=== PATIENT | male | born 1980 | race Caucasian/White ===

== ENCOUNTER 2017-08-07 08:26 | Emergency (ER) | payer SELFPAY ==
--- NOTE | 2017-08-07 08:42 | ED ---
Alcohol HPI - General Chief Complaint: Alcohol Stated Complaint: ETOH Time Seen by Provider: 08/07/17 08:31 Source: patient, RN notes reviewed, old records reviewed Mode of arrival: wheelchair Limitations: altered mental status - History of Present Illness Initial Comments: 36-year-old male presents for evaluation. Patient was seen in the emergency department overnight with right ankle pain. He was in the lobby several hours after discharge, police was called to escort him out of the waiting room, at that time he was somewhat lethargic and unresponsive. He did respond to external stimuli. Patient does admit to drinking. He has no complaints at the time my evaluation. He is clinically intoxicated. No suicidal or homicidal ideation. Patient is currently homeless and due to the area. 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 - Related Data Home Medications Medication Instructions Recorded Confirmed Unable To Assess [Unable to Assess] 08/07/17 08/07/17 Allergies Allergy/AdvReac Type Severity Reaction Status Date / Time Penicillins Allergy Unknown Verified 08/07/17 08:36 Review of Systems ROS Statement: Those systems with pertinent positive or pertinent negative responses have been documented in the HPI. ROS Other: All systems not noted in ROS Statement are negative. Past Medical History Past Medical History: Hypertension History of Any Multi-Drug Resistant Organisms: None Reported Past Surgical History: Appendectomy Additional Past Surgical History / Comment(s): cataract surgery, right leg surgery, right arm surgery Past Psychological History: No Psychological Hx Reported Smoking Status: Current every day smoker Past Alcohol Use History: Abuse Past Drug Use History: None Reported General Exam Limitations: altered mental status General appearance: alert, in no apparent distress, appears intoxicated Head exam: Present: atraumatic, normocephalic Eye exam: Present: normal appearance, PERRL ENT exam: Present: normal exam Neck exam: Present: normal inspection Respiratory exam: Present: normal lung sounds bilaterally. Absent: respiratory distress Cardiovascular Exam: Present: regular rate, normal rhythm GI/Abdominal exam: Present: soft. Absent: distended, tenderness Extremities exam: Present: other (Right ankle wrapped in Pacheco wrap) Back exam: Present: normal inspection, full ROM Neurological exam: Present: alert, oriented X3. Absent: motor sensory deficit Psychiatric exam: Present: normal affect, normal mood. Absent: homicidal ideation, suicidal ideation Skin exam: Present: warm, dry, intact. Absent: cyanosis, diaphoretic Course Vital Signs 08/07/17 08/07/17 08/07/17 08:27 11:40 14:49 Temperature 97.4 F L Pulse Rate 92 72 74 Respiratory 16 18 17 Rate Blood Pressure 127/69 109/57 112/74 O2 Sat by Pulse 99 99 99 Oximetry Medical Decision Making - Medical Decision Making 36 yo male presents with alcohol intoxication. Patient has no additional complaints. No suicidal or homicidal ideation. Patient is reassessed at 1500. He is clinically sober. He is improved in the emergency department without difficulty. He is eating and drinking normally. Disposition Clinical Impression: Alcoholic intoxication Disposition: HOME SELF-CARE Condition: Good Instructions: Alcohol Intoxication (ED) Referrals: None,Stated [Primary Care Provider] - 1-2 days Time of Disposition: 15:02
[2017-08-07 14:50] VITALS: BP 112/74; PULSE 74; RESP 17
[2017-08-07 15:11] VITALS: TEMP 97.7
== END 2017-08-07 15:09 | disposition home or self-care (01) ==
LOC: EC 08:26
DX: F10.129 Alcohol abuse with intoxication, unspecified (principal); M25.571 Pain in right ankle and joints of right foot; R41.82 Altered mental status, unspecified; F17.200 Nicotine dependence, unspecified, uncomplicated; Z88.0 Allergy status to penicillin; Z59.0 Homelessness
CPT/HCPCS: 99284

== ENCOUNTER 2018-03-19 00:05 | Emergency (ER) | payer OTHER ==
[2018-03-19 00:22] VITALS: TEMP 97.8
[2018-03-19] MEDS ORDERED: GABAPENTIN 100 MG CAP PO STA (01:02)
[2018-03-19] MEDS ORDERED: QUEtiapine 50 MG TAB PO STA (01:22)
--- NOTE | 2018-03-19 04:26 | ED ---
Alcohol HPI - General Chief Complaint: Alcohol Stated Complaint: ETOH Time Seen by Provider: 03/19/18 00:12 Source: patient, EMS Mode of arrival: EMS Limitations: no limitations - History of Present Illness Initial Comments: This patient is a 37-year-old man brought in after he was found to be very intoxicated in public. The patient is denying any medical complaints. He denies any recent trauma. MD Complaint: alcohol intoxication -: hour(s) Associated Symptoms: denies other symptoms Treatments Prior to Arrival: none - Related Data Home Medications Medication Instructions Recorded Confirmed Unable To Assess [Unable to Assess] 08/07/17 08/07/17 Allergies Allergy/AdvReac Type Severity Reaction Status Date / Time Penicillins Allergy Unknown Verified 08/07/17 08:36 Review of Systems ROS Statement: Those systems with pertinent positive or pertinent negative responses have been documented in the HPI. ROS Other: All systems not noted in ROS Statement are negative. Constitutional: Denies: weakness Eyes: Denies: vision change Respiratory: Denies: cough, dyspnea Cardiovascular: Denies: chest pain, syncope Gastrointestinal: Denies: abdominal pain, vomiting Musculoskeletal: Denies: back pain Neurological: Denies: headache, weakness, numbness Past Medical History Past Medical History: Hypertension Additional Past Medical History / Comment(s): Pancreatitis, hernia, appendicitis History of Any Multi-Drug Resistant Organisms: None Reported Past Surgical History: Appendectomy Additional Past Surgical History / Comment(s): cataract surgery, right leg surgery, right arm surgery Past Psychological History: No Psychological Hx Reported Smoking Status: Current every day smoker Past Alcohol Use History: Abuse Past Drug Use History: None Reported General Exam Limitations: no limitations General appearance: alert, in no apparent distress Head exam: Present: atraumatic, normocephalic Eye exam: Present: normal appearance. Absent: scleral icterus, conjunctival injection Neck exam: Present: normal inspection, full ROM Respiratory exam: Present: normal lung sounds bilaterally. Absent: respiratory distress, wheezes, rales, rhonchi, stridor Cardiovascular Exam: Present: regular rate, normal rhythm, normal heart sounds GI/Abdominal exam: Present: soft. Absent: tenderness Back exam: Absent: vertebral tenderness Neurological exam: Present: alert, normal gait Skin exam: Present: warm, dry, intact, normal color. Absent: rash Course Vital Signs 03/19/18 03/19/18 03/19/18 00:12 01:22 02:00 Temperature 97.8 F Pulse Rate 105 H 67 Respiratory 16 16 18 Rate Blood Pressure 120/57 106/54 O2 Sat by Pulse 96 100 Oximetry 03/19/18 03/19/18 03/19/18 04:00 05:00 06:37 Temperature Pulse Rate 74 99 Respiratory 16 18 16 Rate Blood Pressure 101/56 95/46 O2 Sat by Pulse 96 97 Oximetry Disposition Clinical Impression: Alcoholic intoxication Disposition: HOME SELF-CARE Condition: Good Instructions: Alcohol Intoxication (ED) Is patient prescribed a controlled substance at d/c from ED?: No Referrals: None,Stated [Primary Care Provider] - 1-2 days
[2018-03-19 06:39] VITALS: BP 95/46; PULSE 99; RESP 16
== END 2018-03-19 06:50 | disposition home or self-care (01) ==
LOC: EC 00:05
DX: F10.129 Alcohol abuse with intoxication, unspecified (principal); F17.200 Nicotine dependence, unspecified, uncomplicated; Z88.0 Allergy status to penicillin
CPT/HCPCS: 99283

== ENCOUNTER 2018-06-12 00:23 | Emergency (ER) | payer OTHER ==
[2018-06-12 00:25] VITALS: RESP 18
--- NOTE | 2018-06-12 01:17 | ED ---
Alcohol HPI - General Chief Complaint: Alcohol Stated Complaint: ETOH Time Seen by Provider: 06/12/18 01:06 Source: patient, police Mode of arrival: ambulatory Limitations: no limitations - History of Present Illness Initial Comments: 37-year-old male patient presents to emergency department today for medical clearance for custodial. Patient was picked up for public intoxication, when they checked his breath alcohol tests he got up to 0.320. They state this is above the level they can accept without medical clearance. Patient denies any current physical symptoms or concerns. States he only has chronic pain in his right arm and right leg that is bothering him. He denies any falls or injuries today. Patient denies any recent rash, fever, chills, shortness breath, chest pain, abdominal pain, nausea, vomiting, diarrhea, constipation, back pain, numbness, tingling, dizziness, weakness, hematuria, dysuria, urinary urgency, urinary frequency, headache, visual changes, or any other complaints. - Related Data Home Medications Medication Instructions Recorded Confirmed Unable To Assess [Unable to Assess] 08/07/17 08/07/17 Allergies Allergy/AdvReac Type Severity Reaction Status Date / Time Penicillins Allergy Unknown Verified 08/07/17 08:36 Review of Systems ROS Statement: Those systems with pertinent positive or pertinent negative responses have been documented in the HPI. ROS Other: All systems not noted in ROS Statement are negative. Past Medical History Past Medical History: Hypertension Additional Past Medical History / Comment(s): Pancreatitis, hernia, appendicitis History of Any Multi-Drug Resistant Organisms: None Reported Past Surgical History: Appendectomy Additional Past Surgical History / Comment(s): cataract surgery, right leg surgery, right arm surgery Past Psychological History: No Psychological Hx Reported Smoking Status: Current every day smoker Past Alcohol Use History: Abuse Past Drug Use History: None Reported General Exam Limitations: no limitations General appearance: alert, in no apparent distress, other (This is a well- developed, well-nourished adult male patient in no acute distress. Vital signs upon presentation are temperature 98.3F, pulse 119, respirations 18, blood pressure 122/76, pulse ox 97% on room air.) Eye exam: Present: normal appearance, PERRL, EOMI. Absent: scleral icterus, conjunctival injection, periorbital swelling ENT exam: Present: normal exam, normal oropharynx, mucous membranes moist Respiratory exam: Present: normal lung sounds bilaterally. Absent: respiratory distress, wheezes, rales, rhonchi, stridor Cardiovascular Exam: Present: regular rate, normal rhythm, normal heart sounds. Absent: systolic murmur, diastolic murmur, rubs, gallop, clicks GI/Abdominal exam: Present: soft, normal bowel sounds. Absent: distended, tenderness, guarding, rebound, rigid Neurological exam: Present: alert, oriented X3, CN II-XII intact Psychiatric exam: Present: normal affect, normal mood Skin exam: Present: warm, dry, intact, normal color. Absent: rash Course Vital Signs 06/12/18 06/12/18 00:23 01:27 Temperature 98.3 F 97.8 F Pulse Rate 119 H 102 H Respiratory 18 18 Rate Blood Pressure 122/76 144/66 O2 Sat by Pulse 97 95 Oximetry Medical Decision Making - Medical Decision Making 37-year-old male patient presented to the emergency department today for evaluation of alcohol intoxication. He was brought in for medical clearance. Physical examination is unremarkable. Patient is alert but obviously intoxicated. He denies any current physical symptoms or concerns. Patient will be cleared to take to custodial. Disposition Clinical Impression: Alcohol intoxication Disposition: HOME SELF-CARE Condition: Good Instructions: Alcohol Intoxication (ED) Additional Instructions: Avoid using alcohol on the future. Return here immediately for any new, worsening, or concerning symptoms. Is patient prescribed a controlled substance at d/c from ED?: No Referrals: None,Stated [Primary Care Provider] - 1-2 days Time of Disposition: 01:17
[2018-06-12 01:30] VITALS: BP 144/66; PULSE 102; TEMP 97.8
== END 2018-06-12 01:30 | disposition home or self-care (01) ==
LOC: EC 00:23
DX: F10.129 Alcohol abuse with intoxication, unspecified (principal); F17.200 Nicotine dependence, unspecified, uncomplicated; Z88.0 Allergy status to penicillin
CPT/HCPCS: 82075; 99284